=== PATIENT | female | born 1940 | race Caucasian/White ===

== ENCOUNTER 2017-09-18 14:10 | Emergency (ER) | payer OTHER ==
[~2017-09-18] VITALS: Ht 160 cm; Wt 110.0 kg
[~2017-09-18 14:10] MED LIST: ADVAIR 500/501 DISK IH; ALDACTONE25 MG PO; ASPIR 8181 M1 PO; BISOPROLOL-HCT1 EAC2 PO; CALCIUM600 M1 PO; CLONIDINE HCL0.2 MG PO; FLONASE16 G1 BOTH NARES; GABAPENTIN100 MG PO; MULTIPLE VITAM1 EAC1 PO; PRAVASTATIN SOD40 MG PO; VITAMIN D31000 UNI2 PO; ZAFIRLUKAST20 M1 PO
[2017-09-18 14:48] LABS: HEMATOCRIT 49.5 % (36.0-46.0); HEMOGLOBIN 15.9 G/DL (11.9-15.5); MCH 29.1 PG (29.0-34.0); MCHC 32.1 G/DL (30.0-36.0); MCV 90.5 FL (83-99); PLATELET COUNT 234 K/uL (156-360); RBC DIS.WIDTH-CV 13.7 % (11.8-14.6); RBC DIS.WIDTH-SD 45.9 % (39-53); RED BLOOD COUNT 5.47 M/uL (3.80-5.20)
[2017-09-18 15:11] LABS: ALBUMIN 3.6 G/DL (3.2-4.8); CHLORIDE 106 MEQ/L (99-109); POTASSIUM 4.1 MEQ/L (3.7-5.4); SODIUM 140 MEQ/L (136-147); TOTAL BILIRUBIN 0.5 MG/DL (0.0-1.0)
[2017-09-18 15:16] LABS: ALKALINE PHOSPHATASE 42 IU/L (3-129); ALT (GPT) 20 IU/L (3-49); AST (GOT) 24 IU/L (2-34); CREATININE 1.5 MG/DL (0.6-1.3); GFR ESTIMATE (CALCULATED) 36 mL/min/; GLUCOSE 121 mg/dL (70-99); LIPASE 24 U/L (1.0-51.0); TOTAL PROTEIN 6.2 G/DL (6.4-8.3); UREA NITROGEN (BUN) 30 mg/dL (9-23)
[2017-09-18 18:23] LABS: APPEARANCE TURBID ((CLEAR)); BILIRUBIN NEGATIVE; BLOOD MODERATE; COLOR AMBER ((YELLOW)); GLUCOSE (STRIP) NEGATIVE; KETONES 5; LEUKOCYTES LARGE; NITRITE NEGATIVE; PROTEIN (STRIP) 100; SPECIFIC GRAVITY 1.025 (1.000-1.030); UROBILINOGEN 0.2 MG/DL (0.2-1.0)
[2017-09-18 19:05] LABS: EPITHELIAL CELLS 1+ /HPF; MUCUS NONE SEEN /LPF; RED BLOOD CELLS RARE /HPF (0-5)
[2017-09-18 19:06] LABS: AMORPHOUS URATES CRYSTALS 2+; BACTERIA 2+ /HPF; UCUL ADDED? YES
[2017-09-18] MEDS ORDERED: ZOFRAN ODT4 MG PO (21:33)
[2017-09-18] MEDS ORDERED: BENTYL20 MG PO (21:33)
[2017-09-18 22:06] VITALS: BP 175/67
== END 2017-09-18 22:12 | disposition home or self-care (01) ==
LOC: EME 14:10
DX: R10.9 Unspecified abdominal pain (principal); R11.2 Nausea with vomiting, unspecified; R19.7 Diarrhea, unspecified; I10 Essential (primary) hypertension; E78.5 Hyperlipidemia, unspecified; E11.9 Type 2 diabetes mellitus without complications; J45.909 Unspecified asthma, uncomplicated; F32.9 Major depressive disorder, single episode, unspecified; Z79.82 Long term (current) use of aspirin; Z79.51 Long term (current) use of inhaled steroids; Z90.49 Acquired absence of other specified parts of digestive tract; Z90.710 Acquired absence of both cervix and uterus; Z87.891 Personal history of nicotine dependence; Z88.0 Allergy status to penicillin; Z88.5 Allergy status to narcotic agent; Z88.8 Allergy status to other drugs, medicaments and biological substances
CPT/HCPCS: 74176; 80053; 81003; 83690; 85027; 87077; 87086; 87186; 99281; 99285; J0500; J2405; J7030

== ENCOUNTER 2017-09-27 22:55 | Inpatient (IN) | payer OTHER ==
[~2017-09-27] VITALS: Ht 160 cm; Wt 106.7 kg
[~2017-09-27 22:55] MED LIST changes: +BENTYL20 MG PO; +ZOFRAN ODT4 MG PO
[2017-09-27 23:35] LABS: BASE EXCESS -0.5 mEq/L (-3 to +3); BICARBONATE 24.2 mEq/L (22-26); CARBOXY HGB 1.7 % (0-5); COMMENTS - BLOOD GASES C+; DEVICE NC; O2 FLOW 4 L/MIN; PCO2 39 mm Hg (35-45); PO2 55 mm Hg (80-100); SITE RR
[2017-09-27 23:55] LABS: ALBUMIN 3.5 g/dL (3.2-4.8); CHLORIDE 100 mEq/L (99-109); POTASSIUM 4.4 mEq/L (3.7-5.4); SODIUM 136 mEq/L (136-147)
[2017-09-27 23:56] LABS: BASOPHIL (%) 0.2 % (0-1); EOSINOPHIL (%) 0 % (0-5); HEMATOCRIT 43.2 % (36.0-46.0); HEMOGLOBIN 14.3 G/DL (11.9-15.5); IMMATURE GRANULOCYTE (%) 0.5 % (0.0-0.7); LYMPHOCYTE (%) 9.8 % (15-42); LYMPHOCYTE COUNT 1.3 K/uL (1.0-2.8); MCH 28.9 PG (29.0-34.0); MCHC 33.1 G/DL (30.0-36.0); MCV 87.3 FL (83-99); MONOCYTE (%) 5.7 % (3-12); MONOCYTE COUNT 0.7 K/uL (0-0.8); NEUTROPHIL (%) 83.8 % (45-76); NEUTROPHIL COUNT 10.9 K/uL (1.8-6.4); RBC DIS.WIDTH-CV 14.3 % (11.8-14.6); RBC DIS.WIDTH-SD 45.8 % (39-53); RED BLOOD COUNT 4.95 M/uL (3.80-5.20)
[2017-09-27 23:57] LABS: GLUCOSE 117 mg/dL (70-99)
[2017-09-27 23:58] LABS: TOTAL PROTEIN 6.5 g/dL (6.4-8.3)
[2017-09-27 23:59] LABS: TOTAL BILIRUBIN 0.5 mg/dL (0.0-1.0)
[2017-09-28 00:01] LABS: ALKALINE PHOSPHATASE 48 IU/L (3-129); CREATININE 1.5 mg/dL (0.6-1.3); GFR ESTIMATE (CALCULATED) 36 mL/min/
[2017-09-28 00:02] LABS: UREA NITROGEN (BUN) 28 mg/dL (9-23)
[2017-09-28 00:03] LABS: AST (GOT) 28 IU/L (2-34)
[2017-09-28 00:04] LABS: ALT (GPT) 26 IU/L (3-49); CREATINE KINASE 80 IU/L (1-294); TOTAL CK 80 IU/L (1-294)
[2017-09-28 00:07] LABS: TROP-I INTERPRETATION NEGATIVE; TROPONIN-I 0.05 ng/mL (0.0-0.30)
[2017-09-28 00:11] LABS: CK-MB 1.3 ng/mL (0.0-4.9); CKMB RELATIVE INDEX 1.6 (0.0-3.9)
[2017-09-28 00:45] LABS: PLAT.SUFFICIENCY DECREASED
[2017-09-28 00:51] LABS: PLATELET COUNT 142 K/uL (156-360)
[2017-09-28 05:37] LABS: APPEARANCE CLOUDY ((CLEAR)); BILIRUBIN NEGATIVE; BLOOD MODERATE; COLOR YELLOW ((YELLOW)); GLUCOSE (STRIP) NEGATIVE; KETONES 5; LEUKOCYTES TRACE; NITRITE NEGATIVE; PROTEIN (STRIP) 100; SPECIFIC GRAVITY 1.031 (1.000-1.030); UROBILINOGEN 0.2 MG/DL (0.2-1.0)
[2017-09-28 06:33] LABS: BACTERIA RARE /HPF; EPITHELIAL CELLS RARE /HPF; MUCUS TRACE /LPF; RED BLOOD CELLS 20-30 /HPF (0-5); UCUL ADDED? YES
[2017-09-28 09:11] VITALS: BP 146/72
[2017-09-28 11:32] VITALS: BP 127/60
[2017-09-28 16:16] VITALS: BP 144/64
[2017-09-28] MEDS ORDERED: CYMBALTA60 MG PO (18:45)
[2017-09-28] MEDS ORDERED: ZANTAC300 MG PO (18:45)
[2017-09-28] MEDS ORDERED: SINGULAIR10 MG PO (18:45)
[2017-09-28] MEDS ORDERED: VENTOLIN HFA18 GM IH (18:45)
[2017-09-28] MEDS ORDERED: BIOFREEZE TP (18:46)
[2017-09-28 20:30] VITALS: BP 147/65
[2017-09-29] VITALS (7 sets, daily range): BP systolic 104–142; BP diastolic 51–81
[2017-09-29 08:37] LABS: HEMATOCRIT 41.9 % (36.0-46.0); HEMOGLOBIN 13.5 G/DL (11.9-15.5); MCH 28.5 PG (29.0-34.0); MCHC 32.2 G/DL (30.0-36.0); MCV 88.4 FL (83-99); PLATELET COUNT 161 K/uL (156-360); RBC DIS.WIDTH-CV 14.2 % (11.8-14.6); RBC DIS.WIDTH-SD 46.1 % (39-53); RED BLOOD COUNT 4.74 M/uL (3.80-5.20)
[2017-09-29 09:42] LABS: CHLORIDE 101 MEQ/L (99-109); CREATININE 1.3 MG/DL (0.6-1.3); GFR ESTIMATE (CALCULATED) 42 mL/min/; GLUCOSE 160 mg/dL (70-99); POTASSIUM 4.4 MEQ/L (3.7-5.4); SODIUM 138 MEQ/L (136-147); UREA NITROGEN (BUN) 33 mg/dL (9-23)
[2017-09-30 04:07] VITALS: BP 113/53
[2017-09-30 06:25] LABS: HEMATOCRIT 39.1 % (36.0-46.0); HEMOGLOBIN 12.3 G/DL (11.9-15.5); MCH 27.8 PG (29.0-34.0); MCHC 31.5 G/DL (30.0-36.0); MCV 88.5 FL (83-99); PLATELET COUNT 178 K/uL (156-360); RBC DIS.WIDTH-CV 14.2 % (11.8-14.6); RBC DIS.WIDTH-SD 45.9 % (39-53); RED BLOOD COUNT 4.42 M/uL (3.80-5.20); WHITE BLOOD COUNT 11.5 K/uL (4.1-10.2)
[2017-09-30 06:45] LABS: CHLORIDE 104 MEQ/L (99-109); CREATININE 1.5 MG/DL (0.6-1.3); GFR ESTIMATE (CALCULATED) 36 mL/min/; GLUCOSE 164 mg/dL (70-99); POTASSIUM 4.6 MEQ/L (3.7-5.4); SODIUM 140 MEQ/L (136-147); UREA NITROGEN (BUN) 40 mg/dL (9-23)
[2017-09-30 07:41] VITALS: BP 122/58
[2017-09-30 11:51] VITALS: BP 120/70
[2017-09-30 15:57] VITALS: BP 127/80
[2017-09-30 20:10] VITALS: BP 156/71
[2017-09-30 23:57] VITALS: BP 119/60
[2017-10-01 04:10] VITALS: BP 154/72
[2017-10-01 07:17] VITALS: BP 138/85
[2017-10-01 16:25] VITALS: BP 128/69
[2017-10-01 19:17] VITALS: BP 130/58
[2017-10-01 22:51] VITALS: BP 145/65
[2017-10-02 03:13] VITALS: BP 166/76
[2017-10-02 06:32] VITALS: BP 137/67
[2017-10-02 06:32] LABS: CHLORIDE 107 MEQ/L (99-109); CREATININE 1.4 MG/DL (0.6-1.3); GFR ESTIMATE (CALCULATED) 39 mL/min/; GLUCOSE 122 mg/dL (70-99); POTASSIUM 5.1 MEQ/L (3.7-5.4); SODIUM 140 MEQ/L (136-147); UREA NITROGEN (BUN) 28 mg/dL (9-23)
[2017-10-02 08:14] LABS: BASOPHIL (%) 0.1 % (0-1); EOSINOPHIL (%) 0 % (0-5); HEMATOCRIT 39.6 % (36.0-46.0); HEMOGLOBIN 12.2 G/DL (11.9-15.5); IMMATURE GRANULOCYTE (%) 0.9 % (0.0-0.7); LYMPHOCYTE COUNT 0.7 K/uL (1.0-2.8); MCH 27.7 PG (29.0-34.0); MCHC 30.8 G/DL (30.0-36.0); MCV 89.8 FL (83-99); MONOCYTE (%) 7.7 % (3-12); MONOCYTE COUNT 0.7 K/uL (0-0.8); NEUTROPHIL (%) 83.3 % (45-76); NEUTROPHIL COUNT 7.6 K/uL (1.8-6.4); PLATELET COUNT 226 K/uL (156-360); RBC DIS.WIDTH-SD 46.2 % (39-53); RED BLOOD COUNT 4.41 M/uL (3.80-5.20); WHITE BLOOD COUNT 9.1 K/uL (4.1-10.2)
[2017-10-02 15:07] VITALS: BP 143/67
[2017-10-02 23:27] VITALS: BP 149/65
[2017-10-03 06:45] VITALS: BP 152/84
[2017-10-03 09:23] LABS: HEMATOCRIT 38.3 % (36.0-46.0); HEMOGLOBIN 12.1 G/DL (11.9-15.5); MCH 28.5 PG (29.0-34.0); MCHC 31.6 G/DL (30.0-36.0); MCV 90.3 FL (83-99); NRBC (%) 0.3 /100 WBC (0-0); PLATELET COUNT 256 K/uL (156-360); RBC DIS.WIDTH-CV 14.2 % (11.8-14.6); RBC DIS.WIDTH-SD 47.1 % (39-53); RED BLOOD COUNT 4.24 M/uL (3.80-5.20); WHITE BLOOD COUNT 7.6 K/uL (4.1-10.2)
[2017-10-03 09:49] LABS: CHLORIDE 105 MEQ/L (99-109); CREATININE 1.2 MG/DL (0.6-1.3); GFR ESTIMATE (CALCULATED) 46 mL/min/; GLUCOSE 113 mg/dL (70-99); POTASSIUM 4.5 MEQ/L (3.7-5.4); SODIUM 141 MEQ/L (136-147); UREA NITROGEN (BUN) 24 mg/dL (9-23)
[2017-10-03 15:45] VITALS: BP 136/65
[2017-10-03 21:59] VITALS: BP 154/70
[2017-10-04 00:47] VITALS: BP 124/79
[2017-10-04 07:19] VITALS: BP 112/56
[2017-10-04 16:10] VITALS: BP 131/60
[2017-10-04 22:52] VITALS: BP 137/62
[2017-10-05 07:25] VITALS: BP 153/69
[2017-10-05 11:24] VITALS: BP 112/70
[2017-10-05 16:36] VITALS: BP 132/72
[2017-10-05 22:57] VITALS: BP 149/66
[2017-10-06 07:46] VITALS: BP 109/51
[2017-10-06] MEDS ORDERED: PREDNISONE20 MG PO (11:51)
[2017-10-06] MEDS ORDERED: DURICEF500 MG PO (11:51)
== END 2017-10-06 14:12 | disposition home health service (06) | DRG 190 ==
LOC: EME 22:55 → 5EAST 09-28 05:53 → EDOF 09-28 05:53 → ENRESERV 09-28 05:55 → 5EAST 09-28 08:37 → ENPENDDIS 10-06 → 5EAST 10-06 14:12
PROVIDERS: Emergency Medicine; Family Medicine; Hospitalist; Internal Medicine; Physician Assistant; Student in an Organized Health Care Education/Training Program
DX: J44.0 Chronic obstructive pulmonary disease with (acute) lower respiratory infection (principal); J15.211 Pneumonia due to Methicillin susceptible Staphylococcus aureus; J44.1 Chronic obstructive pulmonary disease with (acute) exacerbation; G93.1 Anoxic brain damage, not elsewhere classified; R78.81 Bacteremia; N17.9 Acute kidney failure, unspecified; S27.321A Contusion of lung, unilateral, initial encounter; V47.5XXA Car driver injured in collision with fixed or stationary object in traffic accident, initial encounter; Y92.413 State road as the place of occurrence of the external cause; E11.9 Type 2 diabetes mellitus without complications; E78.5 Hyperlipidemia, unspecified; I10 Essential (primary) hypertension; F32.9 Major depressive disorder, single episode, unspecified; E66.9 Obesity, unspecified; Z68.41 Body mass index [BMI] 40.0-44.9, adult; Z79.82 Long term (current) use of aspirin; Z87.891 Personal history of nicotine dependence; Z88.1 Allergy status to other antibiotic agents; Z88.0 Allergy status to penicillin; Z88.5 Allergy status to narcotic agent
CPT/HCPCS: 36600; 70450; 70551; 71045; 71046; 71275; 72125; 73564; 80048; 80053; 81003; 82550; 82553; 82803; 82948; 83605; 83880; 84145 90; 84484; 85025; 85027; 85379; 87040; 87077; 87086; 87186; 87801; 92610 GN; 93005; 94640; 94640 76; 94760; 94799; 97530 GP; 99202; 99281; 99285; J0696; J1644; J1815; J1956; J2920; J2930; J3370; J7030; J7512

== ENCOUNTER 2017-10-07 12:05 | Inpatient (IN) | payer OTHER ==
[~2017-10-07] VITALS: Ht 160 cm; Wt 106.6 kg
[~2017-10-07 12:05] MED LIST changes: +BIOFREEZE TP; +CYMBALTA60 MG PO; +DURICEF500 MG PO; +PREDNISONE20 MG PO; +SINGULAIR10 MG PO; +VENTOLIN HFA18 GM IH; +ZANTAC300 MG PO
[2017-10-07 13:11] LABS: HEMATOCRIT 44.1 % (36.0-46.0); HEMOGLOBIN 13.9 G/DL (11.9-15.5); MCH 28.5 PG (29.0-34.0); MCHC 31.5 G/DL (30.0-36.0); MCV 90.4 FL (83-99); NRBC (%) 0.1 /100 WBC (0-0); RBC DIS.WIDTH-CV 14.3 % (11.8-14.6); RBC DIS.WIDTH-SD 47.6 % (39-53); RED BLOOD COUNT 4.88 M/uL (3.80-5.20); WHITE BLOOD COUNT 21.2 K/uL (4.1-10.2)
[2017-10-07 13:20] LABS: CHLORIDE 103 mEq/L (99-109); POTASSIUM 4.9 mEq/L (3.7-5.4); SODIUM 143 mEq/L (136-147)
[2017-10-07 13:21] LABS: GLUCOSE 101 mg/dL (70-99); PLATELET COUNT 451 K/uL (156-360)
[2017-10-07 13:25] LABS: CREATININE 1.2 mg/dL (0.6-1.3); GFR ESTIMATE (CALCULATED) 46 mL/min/
[2017-10-07 13:26] LABS: UREA NITROGEN (BUN) 25 mg/dL (9-23)
[2017-10-07 15:47] LABS: TROP-I INTERPRETATION NEGATIVE; TROPONIN-I 0.04 ng/mL (0.0-0.30)
[2017-10-07 18:32] VITALS: BP 122/84
[2017-10-07 21:54] VITALS: BP 107/48
[2017-10-08 00:52] VITALS: BP 116/56
[2017-10-08 04:24] LABS: APPEARANCE CLEAR ((CLEAR)); BILIRUBIN NEGATIVE; BLOOD SMALL; COLOR YELLOW ((YELLOW)); GLUCOSE (STRIP) NEGATIVE; KETONES NEGATIVE; LEUKOCYTES TRACE; NITRITE NEGATIVE; PROTEIN (STRIP) NEGATIVE; SPECIFIC GRAVITY 1.015 (1.000-1.030); UROBILINOGEN 0.2 MG/DL (0.2-1.0)
[2017-10-08 04:32] LABS: BACTERIA NONE SEEN /HPF; EPITHELIAL CELLS RARE /HPF; HYALINE CASTS 0-5 /LPF; MUCUS NONE SEEN /LPF; RED BLOOD CELLS 0-5 /HPF (0-5); UCUL ADDED? NO; WHITE BLOOD CELLS 0-5 /HPF (0-5)
[2017-10-08 04:54] VITALS: BP 163/71
[2017-10-08 05:48] LABS: BASOPHIL (%) 0.1 % (0-1); EOSINOPHIL (%) 0.1 % (0-5); HEMATOCRIT 35.6 % (36.0-46.0); HEMOGLOBIN 11.1 G/DL (11.9-15.5); IMMATURE GRANULOCYTE (%) 1.8 % (0.0-0.7); LYMPHOCYTE (%) 6.1 % (15-42); MCH 28.6 PG (29.0-34.0); MCHC 31.2 G/DL (30.0-36.0); MCV 91.8 FL (83-99); MONOCYTE (%) 5.9 % (3-12); NEUTROPHIL COUNT 14.3 K/uL (1.8-6.4); PLATELET COUNT 359 K/uL (156-360); RBC DIS.WIDTH-CV 14.6 % (11.8-14.6); RBC DIS.WIDTH-SD 48.1 % (39-53); RED BLOOD COUNT 3.88 M/uL (3.80-5.20); WHITE BLOOD COUNT 16.7 K/uL (4.1-10.2)
[2017-10-08 06:13] LABS: CHLORIDE 109 MEQ/L (99-109); CREATININE 1.3 MG/DL (0.6-1.3); GFR ESTIMATE (CALCULATED) 42 mL/min/; GLUCOSE 92 mg/dL (70-99); POTASSIUM 4.7 MEQ/L (3.7-5.4); SODIUM 142 MEQ/L (136-147); UREA NITROGEN (BUN) 25 mg/dL (9-23)
[2017-10-08 06:45] VITALS: BP 164/95
[2017-10-08 07:06] VITALS: BP 151/66
[2017-10-08 11:10] VITALS: BP 132/66
[2017-10-08 15:30] VITALS: BP 114/68
[2017-10-09] VITALS (7 sets, daily range): BP systolic 110–150; BP diastolic 54–67
[2017-10-09 10:21] LABS: HEMOGLOBIN A1c (GLYCOHEMOGLOB) 6.9 % (Below 5.7)
[2017-10-10 03:28] VITALS: BP 133/62
[2017-10-10 06:27] LABS: BASOPHIL (%) 0.1 % (0-1); EOSINOPHIL (%) 0 % (0-5); HEMATOCRIT 34.2 % (36.0-46.0); HEMOGLOBIN 10.6 G/DL (11.9-15.5); IMMATURE GRANULOCYTE (%) 1.1 % (0.0-0.7); LYMPHOCYTE (%) 3.1 % (15-42); LYMPHOCYTE COUNT 0.4 K/uL (1.0-2.8); MCH 27.8 PG (29.0-34.0); MCV 89.8 FL (83-99); MONOCYTE (%) 2.2 % (3-12); MONOCYTE COUNT 0.3 K/uL (0-0.8); NEUTROPHIL (%) 93.5 % (45-76); NEUTROPHIL COUNT 13.4 K/uL (1.8-6.4); PLATELET COUNT 301 K/uL (156-360); RBC DIS.WIDTH-CV 13.8 % (11.8-14.6); RBC DIS.WIDTH-SD 45.1 % (39-53); RED BLOOD COUNT 3.81 M/uL (3.80-5.20); WHITE BLOOD COUNT 14.3 K/uL (4.1-10.2)
[2017-10-10 06:37] VITALS: BP 139/65
[2017-10-10 07:19] LABS: CHLORIDE 104 MEQ/L (99-109); CREATININE 1.3 MG/DL (0.6-1.3); GFR ESTIMATE (CALCULATED) 42 mL/min/; MAGNESIUM 1.5 mg/dl (1.3-2.7); SODIUM 140 MEQ/L (136-147); UREA NITROGEN (BUN) 23 mg/dL (9-23)
[2017-10-10 07:26] LABS: GLUCOSE 161 mg/dL (70-99)
[2017-10-10 11:17] VITALS: BP 127/59
[2017-10-10 15:45] VITALS: BP 114/57
[2017-10-10 19:30] VITALS: BP 141/64
[2017-10-11 00:38] VITALS: BP 138/70
[2017-10-11 03:45] VITALS: BP 116/58
[2017-10-11 06:34] LABS: HEMATOCRIT 34.2 % (36.0-46.0); HEMOGLOBIN 10.6 G/DL (11.9-15.5); MCH 28.2 PG (29.0-34.0); PLATELET COUNT 328 K/uL (156-360); RBC DIS.WIDTH-CV 14.3 % (11.8-14.6); RBC DIS.WIDTH-SD 47.1 % (39-53); RED BLOOD COUNT 3.76 M/uL (3.80-5.20); WHITE BLOOD COUNT 16.2 K/uL (4.1-10.2)
[2017-10-11 06:45] VITALS: BP 131/60
[2017-10-11 10:45] VITALS: BP 141/61
[2017-10-11 15:20] VITALS: BP 147/63
[2017-10-12 00:09] VITALS: BP 140/65
[2017-10-12 07:15] VITALS: BP 142/62
[2017-10-12 15:35] VITALS: BP 135/65
[2017-10-13 00:40] VITALS: BP 141/64
[2017-10-13 07:30] VITALS: BP 105/63
[2017-10-13] MEDS ORDERED: Salonpas 4% Patch TD (09:09)
[2017-10-13] MEDS ORDERED: Zeasorb Antifungal T TP (09:09)
[2017-10-13] MEDS ORDERED: Remove Lidoderm Patc TD (09:09)
[2017-10-13] MEDS ORDERED: FUROSEMIDE20 MG PO (09:09)
[2017-10-13] MEDS ORDERED: ACETAMINOPHN-T1 EACH PO (11:22)
== END 2017-10-13 12:29 | disposition home health service (06) | DRG 190 ==
LOC: EME 12:05 → 5EAST 15:53 → EDOF 15:53 → ENRESERV 15:54 → 5EAST 18:00
PROVIDERS: Internal Medicine; Physician Assistant
DX: J44.0 Chronic obstructive pulmonary disease with (acute) lower respiratory infection (principal); J18.9 Pneumonia, unspecified organism; J96.01 Acute respiratory failure with hypoxia; J98.11 Atelectasis; Z68.41 Body mass index [BMI] 40.0-44.9, adult; J45.901 Unspecified asthma with (acute) exacerbation; I13.0 Hypertensive heart and chronic kidney disease with heart failure and stage 1 through stage 4 chronic kidney disease, or unspecified chronic kidney disease; J90 Pleural effusion, not elsewhere classified; J44.1 Chronic obstructive pulmonary disease with (acute) exacerbation; E66.01 Morbid (severe) obesity due to excess calories; M71.22 Synovial cyst of popliteal space [Baker], left knee; N18.9 Chronic kidney disease, unspecified; E11.22 Type 2 diabetes mellitus with diabetic chronic kidney disease; E78.5 Hyperlipidemia, unspecified; Z96.651 Presence of right artificial knee joint; F41.9 Anxiety disorder, unspecified; Z87.891 Personal history of nicotine dependence; Z90.710 Acquired absence of both cervix and uterus; S20.211D Contusion of right front wall of thorax, subsequent encounter; V47.5XXD Car driver injured in collision with fixed or stationary object in traffic accident, subsequent encounter; S22.31XD Fracture of one rib, right side, subsequent encounter for fracture with routine healing; Z90.49 Acquired absence of other specified parts of digestive tract; Z79.51 Long term (current) use of inhaled steroids; Z88.5 Allergy status to narcotic agent; Z88.0 Allergy status to penicillin; Z79.82 Long term (current) use of aspirin; Z87.01 Personal history of pneumonia (recurrent); Z82.0 Family history of epilepsy and other diseases of the nervous system; Z80.42 Family history of malignant neoplasm of prostate; Z80.0 Family history of malignant neoplasm of digestive organs
CPT/HCPCS: 71046; 80048; 81003; 82948; 83036; 83735; 83880; 84145 90; 84484; 85025; 85027; 87070; 87106; 87205; 87449; 87493; 93005; 93306; 93970; 94640; 94640 76; 94667; 94668; 94799; 99202; 99281; 99285; J0696; J1650; J1815; J1956; J2920; J3475; J7030; J7040; J7512